=== PATIENT | male | born 1970 | race Caucasian/White ===

== ENCOUNTER 2017-03-09 09:45 | Emergency (ER) | payer MEDICARE, MEDICAID ==
[2017-03-09] MEDS ORDERED: Ondansetron 4 MG/2 ML SDV IVPUSH ONE (10:36)
--- NOTE | 2017-03-09 10:38 | EDM.PDOC ---
ED HPI GENERAL MEDICAL PROBLEM - General Chief Complaint: Genitourinary Problem Stated Complaint: CATH PROBLEMS,VOMITING Time Seen by Provider: 03/09/17 10:30 Source of Information: Reports: Patient, Provider (HAND CLIPPER) History Limitations: Reports: No Limitations - History of Present Illness INITIAL COMMENTS - FREE TEXT/NARRATIVE: 38-year-old male who self catheterizes on a chronic basis due to cerebral palsy has had an illness over the past 2-3 days with vomiting, vomited 4-6 times yesterday and has not had good urine output for the last 30 hours. No fevers or chills and no pain. Denies diarrhea but he has had an increase in muscle spasm making it harder for him to self catheterize, and may be leaking urine in the process. Denies any shortness of breath, cough, chest pain or headache. Onset: Gradual (Over the past 2 days) Severity: Mild Associated Symptoms: Reports: Malaise, Nausea/Vomiting, Other (Increase muscle spasm and jerking). Denies: Cough, Fever/Chills, Headaches - Related Data Allergies Allergy/AdvReac Type Severity Reaction Status Date / Time No Known Allergies Allergy Verified 03/09/17 10:29 Home Meds: Home Meds Baclofen [Baclofen] 10 mg PO TID 03/09/17 [History] Bisacodyl [Bisacodyl] 10 mg PO DAILY 03/09/17 [History] Calcium Polycarbophil [Fiber Laxative] 625 mg PO DAILY 03/09/17 [History] Cranberry Extract [Cranberry] 400 mg PO BID 03/09/17 [History] Multivitamin with Minerals [Multiple Vitamin] 1 tab PO ASDIRECTED 03/09/17 [ History] Triamcinolone Acetonide [Kenalog 0.1% Crm] 1 appful TOP ASDIRECTED 03/09/17 [ History] Past Medical History HEENT History: Reports: Impaired Vision Genitourinary History: Reports: Retention, Urinary, Other (See Below) Other Genitourinary History: neurogenic bladder Musculoskeletal History: Reports: Other (See Below) Other Musculoskeletal History: cerebral palsy Hematologic History: Reports: Other (See Below) Other Hematologic History: hyperlipidemia Social & Family History - Tobacco Use Smoking Status *Q: Never Smoker - Caffeine Use Caffeine Use: Reports: Coffee, Soda - Recreational Drug Use Recreational Drug Use: No ED ROS GENERAL - Review of Systems Review Of Systems: See Below Constitutional: Reports: Malaise. Denies: Fever, Chills HEENT: Reports: No Symptoms Respiratory: Denies: Shortness of Breath, Cough Cardiovascular: Denies: Chest Pain, Palpitations GI/Abdominal: Reports: Nausea, Vomiting. Denies: Abdominal Pain, Constipation, Diarrhea : Reports: Other (Decreased urine output) Skin: Reports: No Symptoms Neurological: Reports: Other (Cerebral palsy deficits are stable, although he has had an increase in the muscle irritability and spasms) Psychiatric: Reports: No Symptoms ED EXAM, GENERAL - Physical Exam Exam: See Below Exam Limited By: No Limitations General Appearance: Alert, No Apparent Distress Eye Exam: Right Eye: EOMI (Hydration looks adequate) Throat/Mouth: Other (Patient has some gingival chronic changes but hydration looks adequate) Respiratory/Chest: No Respiratory Distress, Lungs Clear Cardiovascular: Regular Rate, Rhythm GI/Abdominal: Normal Bowel Sounds, Soft Neurological: Alert, Oriented, Other (Chronic extremity atrophy from cerebral palsy) Psychiatric: Normal Affect, Normal Mood Skin Exam: Warm, Dry Course - Vital Signs Last Recorded V/S: Last Vital Signs Temp 97.7 F 03/09/17 10:24 Pulse 81 03/09/17 10:24 Resp 16 03/09/17 10:24 BP 128/78 03/09/17 10:24 Pulse Ox 95 03/09/17 10:24 - Orders/Labs/Meds Orders: Active Orders 24 hr Category Date Time Status CULTURE URINE [RM] Stat Lab 03/09/17 11:45 Received Labs: Laboratory Tests 03/09/17 03/09/17 03/09/17 Range/Units 11:05 11:05 11:06 WBC 6.7 (4.5-11.0) K/uL RBC 4.14 L (4.30-5.90) M/uL Hgb 13.6 (12.0-15.0) g/dL Hct 38.1 L (40.0-54.0) % MCV 92 (80-98) fL MCH 33 H (27-31) pg MCHC 36 (32-36) % Plt Count 293 (150-400) K/uL Add Manual Diff Yes Neutrophils % (Manual) 57 (36-66) % Lymphocytes % (Manual) 20 L (24-44) % Monocytes % (Manual) 13 H (2-6) % Eosinophils % (Manual) 1 L (2-4) % Polychromasia Sodium 140 (140-148) mmol/L Potassium 3.8 (3.6-5.2) mmol/L Chloride 100 (100-108) mmol/L Carbon Dioxide 26 (21-32) mmol/L Anion Gap 14.4 H (5.0-14.0) mmol/L BUN 20 H (7-18) mg/dL Creatinine 0.5 L (0.8-1.3) mg/dL Est Cr Clr Drug Dosing 139.10 mL/min Estimated GFR (MDRD) > 60 (>60) Glucose 73 L (74-106) mg/dL Calcium 9.1 (8.5-10.1) mg/dL Total Bilirubin 0.6 (0.2-1.0) mg/dL AST 21 (15-37) U/L ALT 26 (12-78) U/L Alkaline Phosphatase 67 (46-116) U/L Total Protein 6.9 (6.4-8.2) g/dL Albumin 3.0 L (3.4-5.0) g/dL Globulin 3.9 H (2.3-3.5) g/dL Albumin/Globulin Ratio 0.8 L (1.2-2.2) Lipase 73 (73-393) U/L Urine Color Yellow Urine Appearance Cloudy Urine pH 6.0 (4.5-8.0) Ur Specific [place] 1.025 (1.008-1.030) Urine Protein Negative (NEGATIVE) mg/dL Urine Glucose (UA) Normal (NEGATIVE) mg/dL Urine Ketones 150 H (NEGATIVE) mg/dL Urine Occult Blood Negative (NEGATIVE) Urine Nitrite Negative (NEGAITVE) Urine Bilirubin Small (NEGATIVE) Urine Urobilinogen 1 (NORMAL) mg/dL Ur Leukocyte Esterase Small (NEGATIVE) Urine RBC 0-5 (0-5) Urine WBC 30-40 H (0-5) Ur Epithelial Cells Rare Amorphous Sediment Not seen Urine Bacteria Many Urine Mucus Not seen Meds: Medications Discontinued Medications Generic Name Dose Route Start Last Admin Trade Name Freq PRN Reason Stop Dose Admin Sodium Chloride 500 mls @ 1,000 mls/hr 03/09/17 10:45 03/09/17 11:04 Normal Saline IV 1,000 mls/hr ASDIRECTED LISA Administration Ceftriaxone Sodium 1 gm/ 50 mls @ 100 mls/hr 03/09/17 11:42 03/09/17 11:48 Sodium Chloride IV 03/09/17 12:11 100 mls/hr ONETIME ONE Administration Ondansetron HCl 4 mg 03/09/17 10:36 03/09/17 11:04 Zofran IVPUSH 03/09/17 10:37 4 mg ONETIME ONE Administration - Re-Assessments/Exams Free Text/Narrative Re-Assessment/Exam: 03/09/17 10:47 An IV was started, the patient was given 500 mL of normal saline bolus along with 4 mg of IV Zofran. The bladder was decompressed with a catheter in a UA was obtained, as well as serum CBC and CMP and lipase. 03/09/17 11:43 CBC is normal. UA did have ketones, as well as bacteria and WBCs. He has no specific symptoms of a UTI, however his urine will be cultured and he'll be given 1 g Rocephin IV. The additional 500 mils of normal saline was given. 03/09/17 11:54 Electrolytes returned reassuring. Creatinine was normal. GFR was normal and anion gap was just slightly elevated. Patient was discharged with 5 additional doses of Zofran to use as needed and can return if symptoms persist. Departure - Departure Time of Disposition: 12:50 Disposition: Home, Self-Care 01 Condition: Good Clinical Impression: Dehydration Nausea and vomiting Qualifiers: Vomiting type: unspecified Vomiting Intractability: non-intractable Qualified Code(s): R11.2 - Nausea with vomiting, unspecified - Discharge Information Instructions: Nausea, Adult, [id number] Referrals: Jaden Grover MD [Primary Care Provider] - Forms: ED Department Discharge Care Plan Goals: Use Zofran under your tongue as directed for persistent nausea or vomiting. Advance diet as tolerated concentrating on fluids. Return anytime if worsening or concerns. - My Orders Last 24 Hours: My Active Orders 03/09/17 11:45 CULTURE URINE [RM] Stat - Assessment/Plan Last 24 Hours: My Active Orders 03/09/17 11:45 CULTURE URINE [RM] Stat
[2017-03-09] MEDS ORDERED: Sodium Chloride 0.9% 500 ML IV SCH (10:45)
[2017-03-09] MEDS ORDERED: cefTRIAXone 1 GM in Sodium Chloride 0.9% 50 ML IV ONE (11:42)
== END 2017-03-09 12:50 | disposition home or self-care (01) ==
LOC: JP.ED 09:45
DX: E86.0 Dehydration (principal); G80.9 Cerebral palsy, unspecified; R11.2 Nausea with vomiting, unspecified; Z79.899 Other long term (current) drug therapy; Z98.890 Other specified postprocedural states
CPT/HCPCS: 36415; 80053; 81001; 83690; 85025; 87086; 87088; 87186; 96361; 96365; 96375; 99284; J0696; J2405; J7040; J7050; 99283

== ENCOUNTER 2018-12-24 15:22 | Emergency (ER) | payer MEDICARE, MEDICAID ==
--- NOTE | 2018-12-24 16:04 | EDM.PDOC ---
ED HPI GENERAL MEDICAL PROBLEM - General Chief Complaint: Genitourinary Problem Stated Complaint: CLOGGED CATH Time Seen by Provider: 12/24/18 15:25 Source of Information: Reports: Patient, Other (Caregiver) History Limitations: Reports: Language Barrier, Physical Impairment - History of Present Illness INITIAL COMMENTS - FREE TEXT/NARRATIVE: Frantz is a 48 year old male, hx of cerebral palsy, presents to the ED today with his caregiver. Patient has a hx of neurogenic bladder, chronic indwelling suprapubic catheter, FELT HAT MELLOWING MACHINE OPERATOR went to change him this morning and diaper had urine in it. Patient has also had urine from his penis as well. Patient has had no fever, large amounts of sediment in catheter. Onset: Today - Related Data Allergies Allergy/AdvReac Type Severity Reaction Status Date / Time No Known Allergies Allergy Verified 02/02/18 12:24 Home Meds: Home Meds Baclofen 10 mg PO TID 03/09/17 [History] Bisacodyl 10 mg PO DAILY 03/09/17 [History] Calcium Polycarbophil [Fiber Laxative] 625 mg PO DAILY 03/09/17 [History] Cranberry Fruit Extract [Cranberry] 400 mg PO BID 03/09/17 [History] Multivitamin with Minerals [Multiple Vitamin] 1 tab PO ASDIRECTED 03/09/17 [ History] Triamcinolone Acetonide [Kenalog 0.1% Crm] 1 appful TOP ASDIRECTED 03/09/17 [ History] Cholecalciferol (Vitamin D3) [Vitamin D3] 2,000 unit PO DAILY 02/02/18 [History] Past Medical History HEENT History: Reports: Impaired Vision Genitourinary History: Reports: Retention, Urinary, Other (See Below) Other Genitourinary History: neurogenic bladder Musculoskeletal History: Reports: Other (See Below) Other Musculoskeletal History: cerebral palsy Hematologic History: Reports: Other (See Below) Other Hematologic History: hyperlipidemia - Infectious Disease History Infectious Disease History: Reports: Chicken Pox Social & Family History - Tobacco Use Smoking Status *Q: Never Smoker - Caffeine Use Caffeine Use: Reports: Soda - Recreational Drug Use Recreational Drug Use: No ED ROS GENERAL - Review of Systems Review Of Systems: ROS reveals no pertinent complaints other than HPI. ED EXAM, RENAL/ - Physical Exam Exam: See Below Exam Limited By: Physical Impairment General Appearance: Alert, No Apparent Distress Respiratory/Chest: No Respiratory Distress Cardiovascular: Normal Peripheral Pulses, Regular Rate, Rhythm GI/Abdominal: Normal Bowel Sounds, Soft, Non-Tender, Other (suprapubic catheter , wet diaper full ofurine) Extremities: Limited Range of Motion Psychiatric: Normal Affect Skin Exam: Other (glans of penis is erythematous, rash consistent with yeast) Lymphatic: No Adenopathy Course - Vital Signs Last Recorded V/S: Last Vital Signs Temp 35.9 C 12/24/18 15:45 Pulse 98 12/24/18 15:45 Resp 18 12/24/18 15:45 BP 145/102 H 12/24/18 15:45 Pulse Ox 96 12/24/18 15:45 Frantz is a 48 year old male, presents with clogged suprapubic catheter. Please refer to HPI and focused exam. 240 ml's on bedside bladder scanner. Catheter replaced per nursing staff and is running clearly. UA from new bag with significant UTI. UC pending. Patient hemodynamically stable. Will send out on Bactrim pending culture, push fluids, nystatin cream to glans. Follow up as needed. Reasons to return discussed, patient and FELT HAT MELLOWING MACHINE OPERATOR agreeable and patient discharged in stable condition. - Orders/Labs/Meds Orders: Active Orders 24 hr Category Date Time Status CULTURE URINE [RM] Stat Lab 12/24/18 16:38 Ordered Labs: Laboratory Tests 12/24/18 Range/Units 16:24 Urine Color Yellow (YELLOW) Urine Appearance Cloudy A (CLEAR) Urine pH 7.5 (5.0-8.0) Ur Specific [place] 1.020 (1.008-1.030) Urine Protein >=300 H (NEGATIVE) mg/dL Urine Glucose (UA) Negative (NEGATIVE) mg/dL Urine Ketones Negative (NEGATIVE) mg/dL Urine Occult Blood Large H (NEGATIVE) Urine Nitrite Positive H (NEGATIVE) Urine Bilirubin Negative (NEGATIVE) Urine Urobilinogen 0.2 (0.2-1.0) EU/dL Ur Leukocyte Esterase Large H (NEGATIVE) Urine RBC Packed H (0-5) Urine WBC Packed H (0-5) Ur Epithelial Cells Not seen Amorphous Sediment Not seen Urine Bacteria Many Urine Mucus Not seen Departure - Departure Time of Disposition: 17:15 Disposition: Home, Self-Care 01 Condition: Good Clinical Impression: UTI (urinary tract infection), bacterial, Elizabeth infection of genital region Suprapubic catheter dysfunction Qualifiers: Encounter type: initial encounter Qualified Code(s): T83.010A - Breakdown ( mechanical) of cystostomy catheter, initial encounter - Discharge Information Instructions: Suprapubic Catheter Replacement, Genital Yeast Infection, Male, Urinary Tract Infection, Adult, [id number] Referrals: Jaden Grover MD [Primary Care Provider] - Forms: ED Department Discharge Additional Instructions: Start Bactrim and Nystatin as prescribed this evening. Push fluids. Follow up with primary care at the end of the week. Return here with worsening symptoms. - My Orders Last 24 Hours: My Active Orders 12/24/18 16:38 CULTURE URINE [RM] Stat - Assessment/Plan Last 24 Hours: My Active Orders 12/24/18 16:38 CULTURE URINE [RM] Stat
== END 2018-12-24 17:01 | disposition home or self-care (01) ==
LOC: JP.ED 15:22
DX: T83.090A Other mechanical complication of cystostomy catheter, initial encounter (principal); N39.0 Urinary tract infection, site not specified; B96.89 Other specified bacterial agents as the cause of diseases classified elsewhere; B37.49 Other urogenital candidiasis
CPT/HCPCS: 51702; 51798; 81001; 87086; 87088; 87186; 99283-25

== ENCOUNTER 2019-01-19 12:30 | Emergency (ER) | payer MEDICARE, MEDICAID ==
--- NOTE | 2019-01-19 13:34 | EDM.PDOC ---
ED HPI GENERAL MEDICAL PROBLEM - General Chief Complaint: General Stated Complaint: POSSIBLE UTI Time Seen by Provider: 01/19/19 12:30 Source of Information: Reports: Patient History Limitations: Reports: No Limitations - History of Present Illness INITIAL COMMENTS - FREE TEXT/NARRATIVE: 48-year-old male with spina bifida, chronic suprapubic indwelling catheter was brought in today by his door tender suspecting a possible UTI. He had a wet diaper this morning, however the patient thinks it was because he did not raise is his bed above gravity for normal drainage of his bladder. They're also concerned about some possible mild fevers and chills but the patient thinks he feels okay. He has been off of antibiotics for the last 2 weeks after treating a UTI 4 weeks ago Onset: Unknown/Unsure Associated Symptoms: Denies: Confusion, Chest Pain, Loss of Appetite, Nausea/ Vomiting, Shortness of Breath, Weakness - Related Data Allergies Allergy/AdvReac Type Severity Reaction Status Date / Time No Known Allergies Allergy Verified 02/02/18 12:24 Home Meds: Home Meds Baclofen 10 mg PO TID 03/09/17 [History] Bisacodyl 10 mg PO DAILY 03/09/17 [History] Calcium Polycarbophil [Fiber Laxative] 625 mg PO DAILY 03/09/17 [History] Cranberry Fruit Extract [Cranberry] 400 mg PO BID 03/09/17 [History] Multivitamin with Minerals [Multiple Vitamin] 1 tab PO ASDIRECTED 03/09/17 [ History] Triamcinolone Acetonide [Kenalog 0.1% Crm] 1 appful TOP ASDIRECTED 03/09/17 [ History] Cholecalciferol (Vitamin D3) [Vitamin D3] 2,000 unit PO DAILY 02/02/18 [History] Past Medical History HEENT History: Reports: Impaired Vision Genitourinary History: Reports: Retention, Urinary, Other (See Below) Other Genitourinary History: neurogenic bladder Musculoskeletal History: Reports: Other (See Below) Other Musculoskeletal History: cerebral palsy Hematologic History: Reports: Other (See Below) Other Hematologic History: hyperlipidemia - Infectious Disease History Infectious Disease History: Reports: Chicken Pox Social & Family History - Tobacco Use Smoking Status *Q: Never Smoker - Caffeine Use Caffeine Use: Reports: Soda ED ROS GENERAL - Review of Systems Review Of Systems: See Below Constitutional: Denies: Fever, Chills Respiratory: Denies: Shortness of Breath Cardiovascular: Denies: Chest Pain : Denies: Dysuria, Urgency, Urinary Retention Skin: Reports: Other (Caretakers thought he looked a little pale) ED EXAM, GENERAL - Physical Exam Exam: See Below Exam Limited By: No Limitations General Appearance: Alert, No Apparent Distress Eye Exam: Bilateral Eye: Other (Chronic disconjugate gaze is stable) Head: Atraumatic Respiratory/Chest: No Respiratory Distress GI/Abdominal: Soft, Non-Tender (Male) Exam: Other (Bedside catheter bag has 250 mL of clear urine). No: Suprapubic Fullness Neurological: Alert, Oriented Psychiatric: Normal Affect, Normal Mood Skin Exam: Warm, Dry Course - Vital Signs Last Recorded V/S: Last Vital Signs Temp 95.8 F 01/19/19 13:10 Pulse 82 01/19/19 13:10 Resp 16 01/19/19 13:10 BP 119/84 01/19/19 13:10 Pulse Ox 99 01/19/19 13:10 - Orders/Labs/Meds Orders: Active Orders 24 hr Category Date Time Status CULTURE URINE [RM] Stat Lab 01/19/19 13:30 Received Labs: Laboratory Tests 01/19/19 Range/Units 13:23 Urine Color Yellow (YELLOW) Urine Appearance Cloudy A (CLEAR) Urine pH 7.5 (5.0-8.0) Ur Specific [place] 1.015 (1.008-1.030) Urine Protein Negative (NEGATIVE) mg/dL Urine Glucose (UA) Negative (NEGATIVE) mg/dL Urine Ketones Negative (NEGATIVE) mg/dL Urine Occult Blood Trace-lysed H (NEGATIVE) Urine Nitrite Negative (NEGATIVE) Urine Bilirubin Negative (NEGATIVE) Urine Urobilinogen 0.2 (0.2-1.0) EU/dL Ur Leukocyte Esterase Moderate H (NEGATIVE) Urine RBC 0-5 (0-5) Urine WBC 10-20 H (0-5) Ur Epithelial Cells Not seen Amorphous Sediment Moderate Urine Bacteria Moderate Urine Mucus Not seen - Re-Assessments/Exams Free Text/Narrative Re-Assessment/Exam: 01/19/19 13:38 Catheter was checked and was flowing freely. UA was sent to lab. 01/19/19 13:46 UA shows 5-10 WBCs and some bacteria present. It's much improved from his previous UA one month ago where he grew Proteus mirabilis. We will reculture the urine and put him on Cipro 500 mg twice daily for 3 days. Departure - Departure Time of Disposition: 13:54 Disposition: Home, Self-Care 01 Clinical Impression: UTI (urinary tract infection) Qualifiers: Urinary tract infection type: catheter-associated UTI Indwelling urinary catheter type: unspecified Encounter type: initial encounter Qualified Code(s): T83.511A - Infection and inflammatory reaction due to indwelling urethral catheter, initial encounter - Discharge Information Instructions: Urinary Tract Infection, Adult Referrals: Jaden Grover MD [Primary Care Provider] - Forms: ED Department Discharge Care Plan Goals: Take antibiotic twice daily for 3 days, resuming your other medications and continue diet and activity as tolerated. Return anytime if worsening despite medications. - My Orders Last 24 Hours: My Active Orders 01/19/19 13:30 CULTURE URINE [RM] Stat - Assessment/Plan Last 24 Hours: My Active Orders 01/19/19 13:30 CULTURE URINE [RM] Stat
== END 2019-01-19 14:03 | disposition home or self-care (01) ==
LOC: JP.ED 12:30
DX: T83.511A Infection and inflammatory reaction due to indwelling urethral catheter, initial encounter (principal); E78.5 Hyperlipidemia, unspecified; Z79.899 Other long term (current) drug therapy
CPT/HCPCS: 81001; 87086; 87088; 87186; 99283

== ENCOUNTER 2019-01-23 01:55 | Emergency (ER) | payer MEDICARE, MEDICAID | END 2019-01-23 02:50 | disposition home or self-care (01) | LOC: JP.ED 01:55 | DX: T83.098A Other mechanical complication of other urinary catheter, initial encounter (principal) | CPT/HCPCS: 99282; 99283 ==

== ENCOUNTER 2020-05-18 08:29 | Emergency (ER) | payer MEDICARE, MEDICAID ==
--- NOTE | 2020-05-18 10:24 | EDM.PDOC ---
ED HPI GENERAL MEDICAL PROBLEM - General Chief Complaint: Genitourinary Problem Stated Complaint: CATHEDER ISSUE Time Seen by Provider: 05/18/20 10:15 Source of Information: Reports: Patient, Family, Old Records, RN History Limitations: Reports: No Limitations - History of Present Illness INITIAL COMMENTS - FREE TEXT/NARRATIVE: 49 yo male here with a plugged indwelling vasquez catheter. Has no concerns about fever or chills. No other current concerns. Onset: Today Onset Date: 05/18/20 Duration: Hour(s): Location: Reports: Pelvis Quality: Reports: Other (no pain) Severity: Moderate Improves with: Reports: Other (unplugging of the catheter) Worsens with: Reports: Other (time) Context: Reports: Other (see HPI) Associated Symptoms: Reports: No Other Symptoms Treatments FITTER WELDER: Reports: Other (see below) (none) - Related Data Allergies Allergy/AdvReac Type Severity Reaction Status Date / Time No Known Allergies Allergy Verified 05/18/20 08:49 Home Meds: Home Meds Baclofen 10 mg PO TID 03/09/17 [History] Calcium Polycarbophil [Fiber Laxative] 625 mg PO DAILY 03/09/17 [History] Cranberry Fruit Extract [Cranberry] 400 mg PO BID 03/09/17 [History] Multivitamin with Minerals [Multiple Vitamin] 1 tab PO ASDIRECTED 03/09/17 [History] Triamcinolone Acetonide [Kenalog 0.1% Crm] 1 appful TOP ASDIRECTED 03/09/17 [History] bisacodyL [Bisacodyl] 10 mg PO DAILY 03/09/17 [History] Cholecalciferol (Vitamin D3) [Vitamin D3] 2,000 unit PO DAILY 02/02/18 [History] Past Medical History HEENT History: Reports: Impaired Vision Genitourinary History: Reports: Retention, Urinary, Other (See Below) Other Genitourinary History: neurogenic bladder Musculoskeletal History: Reports: Other (See Below) Other Musculoskeletal History: cerebral palsy Hematologic History: Reports: Other (See Below) Other Hematologic History: hyperlipidemia - Infectious Disease History Infectious Disease History: Reports: Chicken Pox - Past Surgical History Head Surgeries/Procedures: Reports: None HEENT Surgical History: Reports: None Male Surgical History: Reports: None Musculoskeletal Surgical History: Reports: None Dermatological Surgical History: Reports: None Social & Family History - Caffeine Use Caffeine Use: Reports: Soda ED ROS GENERAL - Review of Systems Review Of Systems: See Below Constitutional: Reports: No Symptoms : Reports: Other (vasquez cath plugged) Skin: Reports: No Symptoms ED EXAM, RENAL/ - Physical Exam Exam: See Below Exam Limited By: No Limitations General Appearance: Alert, WD/WN, No Apparent Distress (Male) Exam: Other (no urine accumulating in bag) Neurological: Alert, Oriented, Normal Cognition Psychiatric: Normal Affect, Normal Mood Skin Exam: Warm, Dry, Intact, Normal Color, No Rash Course - Vital Signs Last Recorded V/S: Last Vital Signs Temp 36.6 C 05/18/20 08:57 Pulse 83 05/18/20 08:57 Resp 17 05/18/20 08:57 BP 145/87 H 05/18/20 08:57 Pulse Ox 96 05/18/20 08:57 - Re-Assessments/Exams Free Text/Narrative Re-Assessment/Exam: 05/18/20 10:23 Catheter changed per nursing. Departure - Departure Time of Disposition: 10:23 Disposition: Home, Self-Care 01 Condition: Good Clinical Impression: Malfunction of Vasquez catheter Qualifiers: Encounter type: initial encounter Qualified Code(s): T83.011A - Breakdown (mechanical) of indwelling urethral catheter, initial encounter - Discharge Information *PRESCRIPTION DRUG MONITORING PROGRAM REVIEWED*: Not Applicable *COPY OF PRESCRIPTION DRUG MONITORING REPORT IN PATIENT POLLO: Not Applicable Referrals: Jaden Grover MD [Primary Care Provider] - Additional Instructions: Return as needed. Sepsis Event Note (ED) - Evaluation Sepsis Screening Result: No Definite Risk - Focused Exam Vital Signs: Vital Signs Temp Pulse Resp BP Pulse Ox 05/18/20 08:57 36.6 C 83 17 145/87 H 96 05/18/20 08:56 36.6 C 83 17 145/87 H 96
== END 2020-05-18 10:56 | disposition home or self-care (01) ==
LOC: JP.ED 08:29
DX: T83.098A Other mechanical complication of other urinary catheter, initial encounter (principal)
CPT/HCPCS: 51702; 99282; 99283

== ENCOUNTER 2020-06-07 12:07 | Emergency (ER) | payer MEDICARE, MEDICAID ==
--- NOTE | 2020-06-07 13:14 | EDM.PDOC ---
ED HPI GENERAL MEDICAL PROBLEM - General Chief Complaint: Genitourinary Problem Stated Complaint: CATHETER CLOGGED Time Seen by Provider: 06/07/20 13:00 Source of Information: Reports: Patient, RN Notes Reviewed History Limitations: Reports: No Limitations - History of Present Illness INITIAL COMMENTS - FREE TEXT/NARRATIVE: 49-year-old gentleman presents emergency department today with complaint of clogged catheter, he states he was not getting any urine output and needs help flush - Related Data Allergies Allergy/AdvReac Type Severity Reaction Status Date / Time No Known Allergies Allergy Verified 06/07/20 12:44 Home Meds: Home Meds Baclofen 10 mg PO TID 03/09/17 [History] Calcium Polycarbophil [Fiber Laxative] 625 mg PO DAILY 03/09/17 [History] Cranberry Fruit Extract [Cranberry] 400 mg PO BID 03/09/17 [History] Multivitamin with Minerals [Multiple Vitamin] 1 tab PO ASDIRECTED 03/09/17 [ History] Triamcinolone Acetonide [Kenalog 0.1% Crm] 1 appful TOP ASDIRECTED 03/09/17 [History] bisacodyL [Bisacodyl] 10 mg PO DAILY 03/09/17 [History] Cholecalciferol (Vitamin D3) [Vitamin D3] 2,000 unit PO DAILY 02/02/18 [History] Past Medical History HEENT History: Reports: Impaired Vision Genitourinary History: Reports: Retention, Urinary, Other (See Below) Other Genitourinary History: neurogenic bladder Musculoskeletal History: Reports: Other (See Below) Other Musculoskeletal History: cerebral palsy Hematologic History: Reports: Other (See Below) Other Hematologic History: hyperlipidemia - Infectious Disease History Infectious Disease History: Reports: Chicken Pox - Past Surgical History Head Surgeries/Procedures: Reports: None HEENT Surgical History: Reports: None Male Surgical History: Reports: None Musculoskeletal Surgical History: Reports: None Dermatological Surgical History: Reports: None Social & Family History - Tobacco Use Tobacco Use Status *Q: Never Tobacco User - Caffeine Use Caffeine Use: Reports: Soda ED ROS GENERAL - Review of Systems Review Of Systems: See Below GI/Abdominal: Reports: Abdominal Pain ED EXAM, RENAL/ - Physical Exam Exam: See Below Text/Narrative:: Catheter was flushed by nursing staff is now functioning properly he has no complaints Exam Limited By: No Limitations General Appearance: Alert, WD/WN, No Apparent Distress Course - Vital Signs Last Recorded V/S: Last Vital Signs Temp 98.2 F 06/07/20 12:52 Pulse 72 06/07/20 12:52 Resp 20 06/07/20 12:52 BP 149/84 H 06/07/20 12:52 Pulse Ox 98 06/07/20 12:52 Departure - Departure Time of Disposition: 13:14 Disposition: Home, Self-Care 01 Condition: Fair Clinical Impression: Malfunction of Schreiber catheter Qualifiers: Encounter type: initial encounter Qualified Code(s): T83.011A - Breakdown (mechanical) of indwelling urethral catheter, initial encounter - Discharge Information Instructions: Indwelling Urinary Catheter Care, Adult Referrals: Jaden Grover MD [Primary Care Provider] - Additional Instructions: Follow-up with primary care as needed call return to the emergency department worsening of symptoms Sepsis Event Note (ED) - Evaluation Sepsis Screening Result: No Definite Risk - Focused Exam Vital Signs: Vital Signs Temp Pulse Resp BP Pulse Ox 06/07/20 12:52 98.2 F 72 20 149/84 H 98 06/07/20 12:33 98.2 F 72 20 149/84 H 98 - Assessment/Plan Plan: Assessment Acuity = acute Site and laterality = plugged catheter Etiology = unknown Manifestations = none Location of injury = Home Lab values = none Plan Follow-up with primary care as needed This note was dictated using [email or web address] voice recognition software please call with any questions on syntax or grammar.
== END 2020-06-07 13:32 | disposition home or self-care (01) ==
LOC: JP.ED 12:07
DX: T83.098A Other mechanical complication of other urinary catheter, initial encounter (principal); G80.9 Cerebral palsy, unspecified
CPT/HCPCS: 99283

== ENCOUNTER 2020-06-24 11:08 | Emergency (ER) | payer MEDICARE, MEDICAID ==
--- NOTE | 2020-06-24 13:11 | EDM.PDOC ---
ED HPI GENERAL MEDICAL PROBLEM - General Chief Complaint: Genitourinary Problem Stated Complaint: TROUBLE WITH CATHETER Time Seen by Provider: 06/24/20 13:00 Source of Information: Reports: Patient, Family, Old Records, RN History Limitations: Reports: No Limitations - History of Present Illness INITIAL COMMENTS - FREE TEXT/NARRATIVE: 49 yo male presents with concern of a plugged suprapubic catheter. He has been having issues with this recently. He has a urologist, but he has not yet been consulted about this problem. His next appt is 07/10 with urology. Frantz thinks he's leaking urine from both his catheter insertion site and the urethra. Onset: Today Onset Date: 06/24/20 Duration: Hour(s): Location: Reports: Pelvis Quality: Reports: Other (no pain currently) Severity: Mild Improves with: Reports: None Worsens with: Reports: Other (? 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) (none) - Related Data Allergies Allergy/AdvReac Type Severity Reaction Status Date / Time No Known Allergies Allergy Verified 06/24/20 12:26 Home Meds: Home Meds Baclofen 10 mg PO TID 03/09/17 [History] Calcium Polycarbophil [Fiber Laxative] 625 mg PO DAILY 03/09/17 [History] Cranberry Fruit Extract [Cranberry] 400 mg PO BID 03/09/17 [History] Multivitamin with Minerals [Multiple Vitamin] 1 tab PO ASDIRECTED 03/09/17 [History] bisacodyL [Bisacodyl] 10 mg PO DAILY 03/09/17 [History] Cholecalciferol (Vitamin D3) [Vitamin D3] 2,000 unit PO DAILY 02/02/18 [History] Past Medical History HEENT History: Reports: Impaired Vision Genitourinary History: Reports: Retention, Urinary, Other (See Below) Other Genitourinary History: neurogenic bladder Musculoskeletal History: Reports: Other (See Below) Other Musculoskeletal History: cerebral palsy Hematologic History: Reports: Other (See Below) Other Hematologic History: hyperlipidemia - Infectious Disease History Infectious Disease History: Reports: Chicken Pox - Past Surgical History Head Surgeries/Procedures: Reports: None HEENT Surgical History: Reports: None Male Surgical History: Reports: None Musculoskeletal Surgical History: Reports: None Dermatological Surgical History: Reports: None Social & Family History - Tobacco Use Tobacco Use Status *Q: Never Tobacco User - Caffeine Use Caffeine Use: Reports: None - Recreational Drug Use Recreational Drug Use: No ED ROS GENERAL - Review of Systems Review Of Systems: See Below Constitutional: Reports: No Symptoms HEENT: Reports: No Symptoms Respiratory: Reports: No Symptoms Cardiovascular: Reports: No Symptoms GI/Abdominal: Reports: No Symptoms : Reports: Other (decreased urine flow through catheter) Skin: Reports: No Symptoms ED EXAM, RENAL/ - Physical Exam Exam: See Below Exam Limited By: No Limitations General Appearance: Alert, WD/WN, No Apparent Distress Eye Exam: Bilateral Eye: Normal Inspection Ears: Hearing Grossly Normal Nose: Normal Inspection Throat/Mouth: Normal Voice, No Airway Compromise Head: Atraumatic, Normocephalic GI/Abdominal: Normal Bowel Sounds, Soft, Non-Tender, No Distention (Male) Exam: No: Suprapubic Fullness Neurological: Alert, Oriented, Normal Cognition Psychiatric: Normal Affect, Normal Mood Skin Exam: Warm, Dry, Intact, Normal Color, No Rash Course - Vital Signs Last Recorded V/S: Last Vital Signs Temp 36.5 C 06/24/20 12:46 Pulse 79 06/24/20 12:46 Resp 18 06/24/20 12:46 BP 113/59 L 06/24/20 12:46 Pulse Ox 97 06/24/20 12:46 - Orders/Labs/Meds Orders: Active Orders 24 hr Category Date Time Status Bladder Scan [RC] ASDIRECTED Care 06/24/20 13:08 Active Suprapubic Catheter Management [OM.PC] Routine Oth 06/24/20 13:34 Ordered - Re-Assessments/Exams Free Text/Narrative Re-Assessment/Exam: 06/24/20 13:33 Bladder scan 186 ml. Will change his catheter. Free Text/Narrative Re-Assessment/Exam: 06/24/20 14:25 catheter changed Departure - Departure Time of Disposition: 14:26 Disposition: Home, Self-Care 01 Condition: Good Clinical Impression: Suprapubic catheter dysfunction Qualifiers: Encounter type: initial encounter Qualified Code(s): T83.010A - Breakdown (mechanical) of cystostomy catheter, initial encounter - Discharge Information *PRESCRIPTION DRUG MONITORING PROGRAM REVIEWED*: Not Applicable *COPY OF PRESCRIPTION DRUG MONITORING REPORT IN PATIENT POLLO: Not Applicable Referrals: Jaden Grover MD [Primary Care Provider] - Forms: ED Department Discharge Additional Instructions: Follow up with urology [facility]. Sepsis Event Note (ED) - Evaluation Sepsis Screening Result: No Definite Risk - Focused Exam Vital Signs: Vital Signs Temp Pulse Resp BP Pulse Ox 06/24/20 12:46 36.5 C 79 18 113/59 L 97 06/24/20 11:49 36.5 C 79 18 113/59 L 97 - My Orders Last 24 Hours: My Active Orders 06/24/20 13:08 Bladder Scan [RC] ASDIRECTED 06/24/20 13:34 Suprapubic Catheter Management [OM.PC] Routine - Assessment/Plan Last 24 Hours: My Active Orders 06/24/20 13:08 Bladder Scan [RC] ASDIRECTED 06/24/20 13:34 Suprapubic Catheter Management [OM.PC] Routine
== END 2020-06-24 14:52 | disposition home or self-care (01) ==
LOC: JP.ED 11:08
DX: T83.010A Breakdown (mechanical) of cystostomy catheter, initial encounter (principal); G80.9 Cerebral palsy, unspecified
CPT/HCPCS: 51705; 99283-25

== ENCOUNTER 2021-06-30 18:23 | Emergency (ER) | payer MEDICARE, MEDICAID ==
[2021-06-30] MEDS ORDERED: Sodium Chloride 0.9% 10 ML Syringe FLUSH PRN (19:15)
[2021-06-30] MEDS ORDERED: cefTRIAXone 1 GM in Sodium Chloride 0.9% 50 ML IV ONE (20:51)
[2021-06-30] MEDS ORDERED: Sodium Chloride 0.9% 500 ML IV ONE (20:53)
== END 2021-06-30 22:16 | disposition home or self-care (01) ==
LOC: JP.ED 18:23
DX: D64.9 Anemia, unspecified (principal); N39.0 Urinary tract infection, site not specified; G80.9 Cerebral palsy, unspecified; L72.0 Epidermal cyst; Z98.890 Other specified postprocedural states; N31.9 Neuromuscular dysfunction of bladder, unspecified; Z88.2 Allergy status to sulfonamides; Z79.899 Other long term (current) drug therapy
CPT/HCPCS: 36415; 80053; 81001; 83605; 84145; 85025; 85379; 85384; 85610; 85730; 86140; 87040; 87086; 96365; 99283; 99283-25; J0696; J3490; J7040

== ENCOUNTER 2021-12-16 10:22 | Emergency (ER) | payer MEDICARE, MEDICAID | END 2021-12-16 13:22 | disposition home or self-care (01) | LOC: JP.ED 10:22 | DX: T83.511A Infection and inflammatory reaction due to indwelling urethral catheter, initial encounter (principal); B37.0 Candidal stomatitis; Z88.2 Allergy status to sulfonamides; Z79.899 Other long term (current) drug therapy | CPT/HCPCS: 36415; 80048; 83605; 85025; 99283 ==

== ENCOUNTER 2022-04-18 09:29 | Emergency (ER) | payer MEDICARE, MEDICAID | END 2022-04-18 11:01 | disposition home or self-care (01) | LOC: JP.ED 09:29 | DX: T83.010A Breakdown (mechanical) of cystostomy catheter, initial encounter (principal); G80.9 Cerebral palsy, unspecified; N31.9 Neuromuscular dysfunction of bladder, unspecified; Z88.2 Allergy status to sulfonamides | CPT/HCPCS: 99283 ==

== ENCOUNTER 2022-10-03 13:14 | Emergency (ER) | payer MEDICARE, MEDICAID | END 2022-10-03 18:30 | disposition home or self-care (01) | LOC: JP.ED 13:14 | DX: T83.098A Other mechanical complication of other urinary catheter, initial encounter (principal); Z88.2 Allergy status to sulfonamides; Z88.8 Allergy status to other drugs, medicaments and biological substances | CPT/HCPCS: 51705; 99282; 99283 ==

== ENCOUNTER 2023-02-19 12:37 | Emergency (ER) | payer MEDICARE, MEDICAID | END 2023-02-19 15:31 | disposition home or self-care (01) | LOC: JP.ED 12:37 | DX: T83.010A Breakdown (mechanical) of cystostomy catheter, initial encounter (principal); Z88.2 Allergy status to sulfonamides | CPT/HCPCS: 51702; 99283 ==